=== PATIENT | male | born 1950 | race Caucasian/White ===

== ENCOUNTER 2022-06-29 19:18 | Emergency (ER) | payer MEDICARE ==
[2022-06-29] MEDS ORDERED: AMOX/CLAV 875 MG/125 MG TABLET PO STA (19:59)
--- NOTE | 2022-06-29 20:15 | ED Physician Documentation ---
PD HPI UPPER EXT INJURY - Stated complaint Stated Complaint: CAT BITE - Chief complaint Chief Complaint: Laceration - History obtained from History obtained from: Patient - Additonal information Additional information: 66-year-old gentleman who is up-to-date on tetanus whose cat scratched and bit him about both hands, the cat had its tail stuck in the car window as it was being rolled up. This happened around 2 PM today. Review of Systems Constitutional: reports: Reviewed and negative Cardiac: reports: Reviewed and negative Respiratory: reports: Reviewed and negative PD PAST MEDICAL HISTORY - Present Medications Home Medications: Ambulatory Orders Medication Instructions Recorded Confirmed Amox/Clav 875/125 [Augmentin] 1 each PO Q12H #14 tablet 06/29/22 - Allergies Allergies/Adverse Reactions: Allergies Allergy/AdvReac Type Severity Reaction Status Date / Time No Known Drug Allergies Allergy Verified 06/29/22 19:35 PD ED PE NORMAL - Vitals Vital signs reviewed: Yes - General General: Alert and oriented X 3, No acute distress - Extremities Extremities: Other (He has puncture wounds about the dorsum of both hands in the first dorsal webspace basically and on the left second finger. Extensor tendon function of all digits is intact as is neurovascular status in all digits.) - Neuro Neuro: Alert and oriented X 3, Normal speech Results - Vitals Vitals: Vital Signs - 24 hr 06/29/22 19:32 Temperature 36.4 C L Heart Rate 72 Respiratory 16 Rate Blood Pressure 137/89 H O2 Saturation 100 Oxygen O2 Source Room air PD MEDICAL DECISION MAKING - ED course ED course: Wounds were irrigated and dressed, she is started on Augmentin. Tetanus is up-to-date. Counseled on wound care and close return precautions. Departure - Departure Disposition: 01 Home, Self Care Clinical Impression: Cat bite of multiple sites of hand and fingers Condition: Good Record reviewed to determine appropriate education?: Yes Instructions: ED Bite Cat Prescriptions: Amox/Clav 875/125 [Augmentin] 1 each PO Q12H #14 tablet Comments: I sent your prescription electronically to the [facility] pharmacy at the corner of [address] [facility] here in [place] right by the hospital. Pick it up first thing in the morning. Return for new or worsening symptoms, keep a close eye out for signs of infection which would include redness, swelling, increased pain, fever, or drainage. Return immediately or go to your nearest emergency department if you notice any of those things. For wound care, soap and water, bacitracin ointment and a loose wrap is all that is necessary. You will probably need to do this for a week or 2.
[2022-06-29 20:26] VITALS: BP 146/81
--- NOTE | 2022-06-30 10:53 | ED Physician Documentation ---
ED Addendum - Addendum Addendum: 06/30/22 10:51 [facility] pharmacy is apparently closed today and so the patient asked their prescription be transferred instead to [facility] in [place]. We will do this.
== END 2022-06-29 20:27 | disposition home or self-care (01) ==
LOC: ED 19:18
DX: S61.452A Open bite of left hand, initial encounter (principal); S61.451A Open bite of right hand, initial encounter; S61.251A Open bite of left index finger without damage to nail, initial encounter; W55.01XA Bitten by cat, initial encounter
CPT/HCPCS: 99282; A9270